=== PATIENT | female | born 1975 | race Two or more races ===

== ENCOUNTER 2016-10-08 20:12 | Emergency (ER) | payer OTHER ==
[~2016-10-08] VITALS: Ht 160 cm; Wt 72.6 kg
[~2016-10-08 20:12] MED LIST: OXYC-323 PO; PRED50TA PO
[2016-10-08 21:09] VITALS: BP 139/95
[2016-10-08] MEDS ORDERED: SULF1TAB24 PO (21:56)
--- NOTE | 2016-10-08 21:56 | PHYS DOC ---
Past Medical History Past Medical History: High Cholesterol, Hypertension Past Surgical History: No Surgical History Alcohol Use: None Drug Use: None Adult General Chief Complaint Chief Complaint: HEADACHE HPI HPI Patient is a 41 year old presents emergency department stating that she has been having sinus pressure and pain for the last 2 days. She states that she has had a headache starts at the maxillary sinus area and goes up into the back of her head. She denies any visual difficulty. She does have a cough with nonproductive. She does state she has a sore throat. She's been taking Mucinex DM [id number] which she states this makes her feel like her head is has increased pressure and pain. She also states she has a history of high blood pressure. She denies any nausea vomiting. Review of Systems Review of Systems Constitutional: Denies fever or chills [] Eyes: Denies change in visual acuity, redness, or eye pain [] HENT: nasal congestion and sore throat [] Respiratory: cough denies shortness of breath [] Cardiovascular: No additional information not addressed in HPI [] GI: Denies abdominal pain, nausea, vomiting, bloody stools or diarrhea [] : Denies dysuria or hematuria [] Musculoskeletal: Denies back pain or joint pain [] Integument: Denies rash or skin lesions [] Neurologic: Denies headache, focal weakness or sensory changes [] Allergies Allergies Allergies Coded Allergies Type Severity Reaction Last Updated Verified Penicillins Allergy Intermediate 07/02/15 Yes Physical Exam Physical Exam Constitutional: Well developed, well nourished, no acute distress, non-toxic appearance. [] HENT: Normocephalic, atraumatic, bilateral external ears normal, oropharynx moist, no oral exudates, nose normal. Bilateral tympanic membranes appear to be normal. Patient with frontal and maxillary sinus tenderness. Throat appears to have postnasal drip with erythematous no exudate noted. Eyes: PERRLA, EOMI, conjunctiva normal, no discharge. [] Neck: Normal range of motion, no tenderness, supple, no stridor. [] Cardiovascular:Heart rate regular rhythm, no murmur [] Lungs & Thorax: Bilateral breath sounds clear to auscultation [] Skin: Warm, dry, no erythema, no rash. [] Back: No tenderness Extremities: No tenderness, no cyanosis, no clubbing, ROM intact, no edema. [] Neurologic: Alert and oriented X 3, normal motor function, normal sensory function, no focal deficits noted. [] Psychologic: Affect normal, judgement normal, mood normal. [] Current Patient Data Vital Signs Vital Signs Date Time Temp Pulse Resp B/P Pulse Ox O2 Delivery O2 Flow Rate FiO2 10/08/16 21:09 98.6 99 20 99 Room Air 98.6 EKG EKG [] Radiology/Procedures Radiology/Procedures [] Course & Med Decision Making Course & Med Decision Making Pertinent Labs and Imaging studies reviewed. (See chart for details) Recommended patient to continue using Mucinex DM although she states that she does not feel right taking it. Recommended to patient that if she does not feel comfortable taking Mucinex DM them I would suggest nasal saline washes. Patient will be placed on Augmentin for sinusitis infection. Recommended patient to follow up with primary care physician within the next week. Signs and symptoms to return back to emergency department as been provided. [] Dragon Disclaimer Dragon Disclaimer This electronic medical record was generated, in whole or in part, using a voice recognition dictation system. Departure Departure Impression: Primary Impression: Sinusitis Disposition: HOME, SELF-CARE Condition: STABLE Referrals: NO PCP (PCP) Patient Instructions: Sinusitis, [id number] Additional Instructions: Activity as tolerated. Medication as prescribed. You may try Coricidin HBP You may also use nasal saline washes as instructed by brim rounder. Tylenol or ibuprofen for pain and discomfort. Follow-up to primary care physician as needed in the next 5-7 days. Return back to emergency department signs and symptoms of become worse. Scripts Sulfamethoxazole/Trimethoprim (Bactrim Ds Tablet)1 Each Tablet1 Tab PO BID #20 TAB Prov:ERMIAS TALBERT APRN 10/08/16 ERMIAS TALBERT APRN Oct 08, 2016 21:56
== END 2016-10-08 22:07 | disposition home or self-care (01) ==
LOC: ER 20:12
DX: J32.9 Chronic sinusitis, unspecified (principal); E78.00 Pure hypercholesterolemia, unspecified; I10 Essential (primary) hypertension; Z88.0 Allergy status to penicillin
CPT/HCPCS: 99283

== ENCOUNTER 2017-08-04 00:51 | Emergency (ER) | payer OTHER ==
[2017-08-04 01:36] LABS: ADD MAN DIFF? NO
[2017-08-04 01:38] LABS: BASO % 0 % (0-3); EOS # 0.1 x10^3/uL (0.0-0.7); EOS % 2 % (0-3); HEMATOCRIT 39.9 % (36.0-47.0); HEMOGLOBIN 13.5 g/dL (12.0-15.5); LYMPH # 3.3 x10^3/uL (1.0-4.8); LYMPH % 43 % (24-48); MEAN CORPUSCULAR HEMOGLOBIN 30 pg (25-35); MEAN CORPUSCULAR HGB CONC 34 g/dL (31-37); MEAN CORPUSCULAR VOLUME 89 fL (79-100); MONO # 0.5 x10^3/uL (0.0-1.1); MONO % 6 % (0-9); NEUT # 3.8 x10^3uL (1.8-7.7); NEUT % 49 % (31-73); PLATELET COUNT 436 x10^3/uL (140-400); RED CELL DISTRIBUTION WIDTH 12.7 % (11.5-14.5); WHITE BLOOD COUNT 7.8 x10^3/uL (4.0-11.0)
[2017-08-04] MEDS: ASPIRIN ENTERIC COATED 325 MG TABLET.DR. PO (01:44)
[2017-08-04] MEDS: NITROGLYCERIN SUBLINGUAL 0.4 MG BOTTLE OF 25. SL (01:45)
[2017-08-04] MEDS: IPRATRPIUM/ALBUTEROL 0.5/2.5MG 3 ML NEBU. NEB (01:50)
[2017-08-04 02:19] LABS: ANION GAP 14 (6-14); BLOOD UREA NITROGEN 12 mg/dL (7-20); BUN/CREATININE RATIO 15 (6-20); CALCIUM 8.5 mg/dL (8.5-10.1); CARBON DIOXIDE 25 mmol/L (21-32); CHLORIDE 98 mmol/L (98-107); CREATININE 0.8 mg/dL (0.6-1.0); GFR 78.3; GLUCOSE 98 mg/dL (70-99); POTASSIUM 3.3 mmol/L (3.5-5.1); SODIUM 137 mmol/L (136-145)
[2017-08-04 02:25] LABS: ALBUMIN 3.8 g/dL (3.4-5.0); ALBUMIN/GLOBULIN RATIO 0.9 (1.0-1.7); ALK PHOS 66 U/L (46-116); ALT (SGPT) 22 U/L (14-59); AST (SGOT) 16 U/L (15-37); MAGNESIUM 1.8 mg/dL (1.8-2.4); TOTAL BILIRUBIN 0.2 mg/dL (0.2-1.0); TOTAL PROTEIN 7.9 g/dL (6.4-8.2)
[2017-08-04 02:28] LABS: LACTIC ACID 2.5 mmol/L (0.4-2.0)
[2017-08-04 02:31] LABS: PARTIAL THROMBOPLASTIN TIME 31 SEC (24-38); PROTHROMBIN TIME PATIENT 12.4 SEC (11.7-14.0)
[2017-08-04 02:31] LABS: NT-PRO BNP 24 pg/mL (0-124)
[2017-08-04 02:36] LABS: D-DIMER < 0.27 ug/mlFEU (0.00-0.50)
[2017-08-04 02:38] LABS: TROPONINI < 0.017 ng/mL (0.000-0.055)
== END 2017-08-04 03:47 | disposition home or self-care (01) ==
LOC: ER 00:51
DX: R07.89 Other chest pain (principal); R06.00 Dyspnea, unspecified; E78.00 Pure hypercholesterolemia, unspecified; I10 Essential (primary) hypertension; Z88.0 Allergy status to penicillin; Z79.899 Other long term (current) drug therapy
CPT/HCPCS: 36415; 71045; 80053; 83605; 83735; 83880; 84484; 85025; 85379; 85610; 85730; 93005; 94640; 99285-25; J7620

== ENCOUNTER 2018-08-25 23:19 | Emergency (ER) | payer OTHER ==
[~2018-08-25] VITALS: Ht 149.9 cm; Wt 80.7 kg
[~2018-08-25 23:19] MED LIST changes: +ATOR20TA58 PO; +LOSA1TAB22 PO; -OXYC-323 PO; +OXYC1TAB15 PO; +SULF1TAB24 PO
[2018-08-25 23:28] VITALS: BP 129/70
--- NOTE | 2018-08-25 23:47 | PHYS DOC ---
Past Medical History Past Medical History: High Cholesterol, Hypertension (LUCIA VELASQUEZ APRN) Past Surgical History: No Surgical History (LUCIA VELASQUEZ APRN) Alcohol Use: None Drug Use: None (LUCIA VELASQUEZ APRN) Adult General Chief Complaint Chief Complaint: FLU SYMPTOM HPI HPI Patient is a 43 year old female with a history of high cholesterol, hypertension, who presents today complaining of body aches, mild headache, sore throat, cough and fever since yesterday. Patient denies any neck pain. Denies any nausea, vomiting, denies any diarrhea, denies any abdominal pain. Daughter was interpreting for [place] (LUCIA VELASQUEZ APRN) Review of Systems Review of Systems Constitutional: Reports fevers and body aches Eyes: Denies change in visual acuity, redness, or eye pain [] HENT: Reports sore throat. Denies nasal congestion Respiratory: Reports cough, denies shortness of breath [] Cardiovascular: No additional information not addressed in HPI [] GI: Denies abdominal pain, nausea, vomiting, bloody stools or diarrhea [] : Denies dysuria or hematuria [] Musculoskeletal: Denies back pain or joint pain [] Integument: Denies rash or skin lesions [] Neurologic: Denies headache, focal weakness or sensory changes [] All other systems were reviewed and found to be within normal limits, except as documented in this note. (LUCIA VELASQUEZ APRN) Current Medications Current Medications Current Medications Medications (Trade) Dose Ordered Sig/Lucretia Start Time Stop Time Status Last Admin Dose Admin Acetaminophen (Tylenol) 1,000 mg 1X ONCE 08/26/18 00:00 08/26/18 00:01 DC 08/26/18 00:11 1,000 MG Lidocaine HCl (Viscous Lidocaine) 15 ml 1X ONCE 08/26/18 00:00 08/26/18 00:01 DC 08/26/18 00:11 15 ML (CLAIRE SOLIMAN DO) Allergies Allergies Allergies Coded Allergies Type Severity Reaction Last Updated Verified Penicillins Allergy Intermediate 07/02/15 Yes (CLAIRE SOLIMAN DO) Physical Exam Physical Exam Constitutional: Well developed, well nourished, no acute distress, non-toxic appearance. [] HENT: Normocephalic, atraumatic, bilateral external ears normal, oropharynx moist, no oral exudates, nose normal. [] Eyes: PERRLA, EOMI, conjunctiva normal, no discharge. [] Neck: Normal range of motion, no tenderness, supple, no stridor. [] Cardiovascular:Heart rate regular rhythm, no murmur [] Lungs & Thorax: Bilateral breath sounds clear to auscultation [] Abdomen: Bowel sounds normal, soft, no tenderness, no masses, no pulsatile masses. [] Skin: Warm, dry, no erythema, no rash. [] Back: No tenderness, no CVA tenderness. [] Extremities: No tenderness, no cyanosis, no clubbing, ROM intact, no edema. [] Neurologic: Alert and oriented X 3, normal motor function, normal sensory function, no focal deficits noted. [] Psychologic: Affect normal, judgement normal, mood normal. [] (LUCIA VELASQUEZ APRN) Current Patient Data Vital Signs Vital Signs Date Time Temp Pulse Resp B/P (MAP) Pulse Ox O2 Delivery O2 Flow Rate FiO2 08/25/18 23:28 99.2 104 22 129/70 (89) 95 Room Air 99.2 (CLAIRE SOLIMAN DO) Lab Values Laboratory Tests Test 08/25/18 23:22 Influenza Type A Antigen Negative (NEGATIVE) Influenza Type B Antigen Negative (NEGATIVE) (CLAIRE SOLIMAN DO) Lab Values Laboratory Tests Test 08/25/18 23:22 Influenza Type A Antigen Negative (NEGATIVE) Influenza Type B Antigen Negative (NEGATIVE) (LUCIA VELASQUEZ APRN) EKG EKG [] (LUCIA VELASQUEZ APRN) Radiology/Procedures Radiology/Procedures [] (LUCIA VELASQUEZ APRN) Course & Med Decision Making Course & Med Decision Making Pertinent Labs and Imaging studies reviewed. (See chart for details) This is a 43-year-old female patient presenting to the ED today with multiple viral complaint symptoms including headache, sore throat, body aches, cough. Symptoms since yesterday. Temperature on arrival to the ED 99.2 Negative rapid strep, negative influenza A or B, chest x-ray interpreted by Dr. Soliman is negative for any acute findings. Patient was discharged with Tessalon Perles and prednisone short course. Saltwater gargles recommended. Tylenol/ Motrin for pain or fever. (LUCIA VELASQUEZ APRN) Dragon Disclaimer Dragon Disclaimer This electronic medical record was generated, in whole or in part, using a voice recognition dictation system. (LUCIA VELASQUEZ APRN) Departure Departure Impression: Primary Impression: Cough Additional Impressions: Viral upper respiratory illness Acute viral pharyngitis Fever Disposition: HOME, SELF-CARE Condition: STABLE Referrals: JUNO OCREA MD (PCP) Follow up in 1-2 weeks Patient Instructions: Cough, Adult, [id number], Fever, Adult, Viral Pharyngitis Additional Instructions: You were evaluated in the emergency room, we highly suspect you have a viral illness. Take the prescribed medications as ordered. Rest, push fluids. Follow- up with your doctor in 1-2 weeks. Scripts Benzonatate (TESSALON PERLE) 100 Mg Capsule 1 CAP PO TID, #30 CAP Prov: LUCIA VELASQUEZ APRN 08/26/18 Prednisone (PREDNISONE) 50 Mg Tablet 1 TAB PO DAILY, #5 TAB Prov: LUCIA VELASQUEZ APRN 08/26/18 Attending Signature Attending Signature I have reviewed the PA/BUSINESS APPLICATIONS DEVELOPER's note and plan of care. I was available for consultation as needed during the patient's visit in the emergency department. I agree with the clinical impression, plan, and disposition. (CLAIRE SOLIMAN DO) Problem Qualifiers Additional Impressions: Fever Fever type: unspecified Qualified Codes: R50.9 - Fever, unspecified LUCIA VELASQUEZ APRN Aug 25, 2018 23:47 CLAIRE SOLIMAN DO Aug 26, 2018 05:22
[2018-08-25 23:48] LABS: INFLUENZA A PATIENT NEGATIVE (NEGATIVE); INFLUENZA B PATIENT NEGATIVE (NEGATIVE)
[2018-08-26] MEDS ORDERED: ACETAMINOPHEN 500 MG TABLET PO ONE
[2018-08-26] MEDS ORDERED: LIDOCAINE 2% VISCOUS 15 ML SOLUTION. SWSW ONE
[2018-08-26] MEDS ORDERED: BENZ100C PO (00:40)
[2018-08-26] MEDS ORDERED: PRED50TA PO (00:40)
--- NOTE | 2018-08-26 08:03 | RAD ---
PROCEDURE: CHEST PA LATERAL CLINICAL INDICATION: cough; flu symptoms COMPARISON: None FINDINGS: No pneumothorax identified. Cardiac and mediastinal contours unremarkable. No pulmonary consolidation or acute airspace disease. No acute osseous abnormalities identified. IMPRESSION: No pulmonary consolidation or acute airspace disease. Electronically signed by: Saravanan Martínez DO (08/26/2018 7:58 AM) [id number]
== END 2018-08-26 00:47 | disposition home or self-care (01) ==
LOC: ER 23:19
DX: J02.8 Acute pharyngitis due to other specified organisms (principal); R50.9 Fever, unspecified; E78.00 Pure hypercholesterolemia, unspecified; I10 Essential (primary) hypertension
CPT/HCPCS: 71046; 87070; 87804; 87880; 99284-25

== ENCOUNTER 2019-09-05 01:23 | Emergency (ER) | payer SELFPAY ==
[~2019-09-05] VITALS: Ht 154.9 cm; Wt 81.8 kg
[~2019-09-05 01:23] MED LIST changes: +BENZ100C PO
--- NOTE | 2019-09-05 02:04 | PHYS DOC ---
Past Medical History Past Medical History: High Cholesterol, Hypertension Past Surgical History: No Surgical History Smoking Status: Never Smoker Alcohol Use: None Drug Use: None The HEART Score for CP Pts HEART Score for Chest Pain: HEART Score for Chest Pain Response (Comments) Value History Slighlty/Non-Suspicious 0 ECG Nonspecific Repolarizatio 1 Age >45 - < 65 1 Risk Factors >3 Risk Factors or Hx CAD 2 Troponin < Normal Limit 0 Total 4 Risk Factors: Risk Factors: DM, Current or recent (<one month) smoker, HTN, HLP, family history of CAD, obesity. Risk Scores: Score 0 - 3: 2.5% MACE over next 6 weeks - Discharge Home Score 4 - 6: 20.3% MACE over next 6 weeks - Admit for Clinical Observation Score 7 - 10: 72.7% MACE over next 6 weeks - Early Invasive Strategies Adult General Chief Complaint Chief Complaint: HEADACHE HPI HPI 44-year-old female with underlying history of hypertension, hyperlipidemia, family history of coronary artery disease presents to the emergency department with elevated blood pressure, shortness of breath, chest pain. Patient takes hydrochlorothiazide 25 mg, she has taken 4 of these medications given her continued elevation of blood pressure at home. Onset was around 5 PM. Patient denies any nausea, vomiting, diarrhea, abdominal pain. Patient denies any visual changes. Nothing makes her symptoms worse, nothing makes her symptoms better. Review of Systems Review of Systems Constitutional: Denies fever or chills [] Respiratory: SOB Cardiovascular: No additional information not addressed in HPI [] GI: Denies abdominal pain, nausea, vomiting, bloody stools or diarrhea [] Musculoskeletal: Denies back pain or joint pain [] Integument: Denies rash or skin lesions [] Neurologic: + headache, no focal weakness or sensory changes [] All other systems were reviewed and found to be within normal limits, except as documented in this note. Current Medications Current Medications Current Medications Medications (Trade) Dose Ordered Sig/Lucretia Start Time Stop Time Status Last Admin Dose Admin Aspirin (Children'S Aspirin) 324 mg 1X ONCE 09/05/19 02:30 09/05/19 02:31 DC 09/05/19 03:08 324 MG Diphenhydramine HCl (Benadryl) 25 mg 1X ONCE 09/05/19 03:00 09/05/19 03:01 DC 09/05/19 03:11 25 MG Ketorolac Tromethamine (Toradol 30mg Vial) 30 mg 1X ONCE 09/05/19 03:00 09/05/19 03:01 DC 09/05/19 03:10 30 MG Magnesium Chloride (Mag Delay) 64 mg 1X ONCE 09/05/19 03:30 09/05/19 03:31 DC 09/05/19 03:22 64 MG Metoclopramide HCl (Reglan Vial) 10 mg 1X ONCE 09/05/19 03:00 09/05/19 03:01 DC 09/05/19 03:13 10 MG Potassium Chloride (Klor-Con) 40 meq 1X ONCE 09/05/19 03:30 09/05/19 03:31 DC 09/05/19 03:09 40 MEQ Allergies Allergies Allergies Coded Allergies Type Severity Reaction Last Updated Verified Penicillins Allergy Intermediate 07/02/15 Yes Physical Exam Physical Exam Constitutional: Well developed, well nourished, no acute distress, non-toxic appearance. [] HENT: Normocephalic, atraumatic, bilateral external ears normal, oropharynx moist, no oral exudates, nose normal. [] Eyes: PERRLA, EOMI, conjunctiva normal, no discharge. [] Cardiovascular:Heart rate regular rhythm, no murmur [] Lungs & Thorax: Bilateral breath sounds clear to auscultation [] Abdomen: Bowel sounds normal, soft, no tenderness, no masses, no pulsatile masses. [] Skin: Warm, dry, no erythema, no rash. [] Back: No tenderness, no CVA tenderness. [] Extremities: No tenderness, no edema. [] Neurologic: Alert and oriented X 3, no focal deficits noted. [] Psychologic: Affect normal, judgement normal, mood normal. [] Current Patient Data Vital Signs Vital Signs Date Time Temp Pulse Resp B/P (MAP) Pulse Ox O2 Delivery O2 Flow Rate FiO2 09/05/19 01:40 96.1 85 16 168/102 (124) 97 Room Air 96.1 Lab Values Laboratory Tests Test 09/05/19 02:14 09/05/19 02:20 09/05/19 03:49 POC Urine HCG, Qualitative Hcg negative (Negative) White Blood Count 7.7 x10^3/uL (4.0-11.0) Red Blood Count 4.53 x10^6/uL (3.50-5.40) Hemoglobin 13.4 g/dL (12.0-15.5) Hematocrit 38.9 % (36.0-47.0) Mean Corpuscular Volume 86 fL (79-100) Mean Corpuscular Hemoglobin 30 pg (25-35) Mean Corpuscular Hemoglobin Concent 34 g/dL (31-37) Red Cell Distribution Width 13.0 % (11.5-14.5) Platelet Count 396 x10^3/uL (140-400) Neutrophils (%) (Auto) 49 % (31-73) Lymphocytes (%) (Auto) 43 % (24-48) Monocytes (%) (Auto) 7 % (0-9) Eosinophils (%) (Auto) 1 % (0-3) Basophils (%) (Auto) 1 % (0-3) Neutrophils # (Auto) 3.7 x10^3/uL (1.8-7.7) Lymphocytes # (Auto) 3.3 x10^3/uL (1.0-4.8) Monocytes # (Auto) 0.5 x10^3/uL (0.0-1.1) Eosinophils # (Auto) 0.1 x10^3/uL (0.0-0.7) Basophils # (Auto) 0.1 x10^3/uL (0.0-0.2) Sodium Level 136 mmol/L (136-145) Potassium Level 2.4 mmol/L (3.5-5.1) *L Chloride Level 96 mmol/L (98-107) L Carbon Dioxide Level 30 mmol/L (21-32) Anion Gap 10 (6-14) Blood Urea Nitrogen 11 mg/dL (7-20) Creatinine 0.8 mg/dL (0.6-1.0) Estimated GFR (Cockcroft-Gault) 77.6 BUN/Creatinine Ratio 14 (6-20) Glucose Level 99 mg/dL (70-99) Calcium Level 8.9 mg/dL (8.5-10.1) Magnesium Level 1.6 mg/dL (1.8-2.4) L Total Bilirubin 0.4 mg/dL (0.2-1.0) Aspartate Amino Transferase (AST) 26 U/L (15-37) Alanine Aminotransferase (ALT) 33 U/L (14-59) Alkaline Phosphatase 76 U/L (46-116) Troponin I Quantitative < 0.017 ng/mL (0.000-0.055) < 0.017 ng/mL (0.000-0.055) Total Protein 7.7 g/dL (6.4-8.2) Albumin 3.7 g/dL (3.4-5.0) Albumin/Globulin Ratio 0.9 (1.0-1.7) L Laboratory Tests 09/05/19 02:20 Laboratory Tests 09/05/19 02:20 EKG EKG [] Radiology/Procedures Radiology/Procedures [facility] [address] [place] [address] IMAGING REPORT Signed PATIENT: YAMILETH WELCH AACCOUNT: [id number] : 1975 LOCATION: ER AGE: 44 SEX: F EXAM STATUS: REG ER ORD. PHYSICIAN: VIOLET ROBERTSON MD REASON: headache, elevated BP PROCEDURE: CT HEAD WO CONTRAST PQRS Compliance Statement: One or more of the following individualized dose reduction techniques were utilized for this examination: 1. Automated exposure control 2. Adjustment of the mA and/or kV according to patient size 3. Use of iterative reconstruction technique CT HEAD WITHOUT CONTRAST History: Headache, elevated blood pressure. Comparison: None. Procedure: Axial images are obtained of the head from the skull base through the vertex without IV contrast. Findings: The ventricles and sulci are normal for the patient's age. No mass-effect, midline shift, hemorrhage, extra-axial fluid collection, or obvious acute infarction is identified. Basilar cisterns are patent. Bone windows demonstrate no acute calvarial abnormality. The visualized paranasal sinuses are clear. Mastoid air cells are well aerated. IMPRESSION: No acute intracranial abnormality. Electronically signed by: Neo Denise MD (09/05/2019 2:52 AM) [id number] DICTATED and SIGNED BY: NEO DENISE MD DATE: 09/05/19 0252 [] CXR without acute findings - wet read 314 Course & Med Decision Making Course & Med Decision Making Pertinent Labs and Imaging studies reviewed. (See chart for details) []44-year-old female with underlying history of hypertension, hyperlipidemia, family history of coronary artery disease presents to the emergency department with elevated blood pressure, shortness of breath, chest pain. Patient takes hydrochlorothiazide 25 mg, she has taken 4 of these medications given her continued elevation of blood pressure at home. Onset was around 5 PM. Patient denies any nausea, vomiting, diarrhea, abdominal pain. Patient denies any visual changes. Nothing makes her symptoms worse, nothing makes her symptoms better. Labs/Imaging reviewed CT head negative for acute process BP < 170 systolically during ER visit Patient without chest pain during ER visit Headache improved after Toradol/Benadryl/Reglan Recommend dc home and follow with PCP as outpatient Simon Disclaimer Simon Disclaimer This electronic medical record was generated, in whole or in part, using a voice recognition dictation system. Departure Departure Impression: Primary Impression: Chest pain Additional Impressions: Headache Hypertension Hypokalemia Hypomagnesemia Disposition: HOME, SELF-CARE Condition: IMPROVED Referrals: NO PCP (PCP) Patient Instructions: Chest Pain Observation, Hypertension, Hypokalemia-Brief, Hypomagnesemia Additional Instructions: CT of head negative for acute process EKG without acute rhythm changes Hypokalemia and hypomagnesemia replaced in ER Cardiac enzymes x 2 sets negative in the ER Recommend follow up with PCP as outpatient regarding BP follow up Problem Qualifiers Primary Impression: Chest pain Chest pain type: unspecified Qualified Codes: R07.9 - Chest pain, unspecified Additional Impressions: Headache Headache type: unspecified Headache chronicity pattern: episodic headache Intractability: intractable Qualified Codes: R51 - Headache Hypertension Hypertension type: essential hypertension Qualified Codes: I10 - Essential (primary) hypertension VIOLET ROBERTSON MD Sep 05, 2019 02:04
[2019-09-05 02:29] LABS: BASO # 0.1 x10^3/uL (0.0-0.2); BASO % 1 % (0-3); EOS # 0.1 x10^3/uL (0.0-0.7); EOS % 1 % (0-3); HEMATOCRIT 38.9 % (36.0-47.0); HEMOGLOBIN 13.4 g/dL (12.0-15.5); LYMPH # 3.3 x10^3/uL (1.0-4.8); LYMPH % 43 % (24-48); MEAN CORPUSCULAR HEMOGLOBIN 30 pg (25-35); MEAN CORPUSCULAR HGB CONC 34 g/dL (31-37); MEAN CORPUSCULAR VOLUME 86 fL (79-100); MONO # 0.5 x10^3/uL (0.0-1.1); MONO % 7 % (0-9); NEUT # 3.7 x10^3/uL (1.8-7.7); NEUT % 49 % (31-73); PLATELET COUNT 396 x10^3/uL (140-400); RED BLOOD COUNT 4.53 x10^6/uL (3.50-5.40); WHITE BLOOD COUNT 7.7 x10^3/uL (4.0-11.0)
[2019-09-05] MEDS ORDERED: ASPIRIN CHEWABLE 81 MG TABLET. PO ONE (02:30)
[2019-09-05 02:47] LABS: ALBUMIN 3.7 g/dL (3.4-5.0); ALBUMIN/GLOBULIN RATIO 0.9 (1.0-1.7); CALCIUM 8.9 mg/dL (8.5-10.1); CREATININE 0.8 mg/dL (0.6-1.0); GFR 77.6; TOTAL BILIRUBIN 0.4 mg/dL (0.2-1.0); TOTAL PROTEIN 7.7 g/dL (6.4-8.2)
[2019-09-05 02:50] LABS: POTASSIUM 2.4 mmol/L (3.5-5.1)
--- NOTE | 2019-09-05 02:55 | RAD ---
RS Compliance Statement: One or more of the following individualized dose reduction techniques were utilized for this examination: 1. Automated exposure control 2. Adjustment of the mA and/or kV according to patient size 3. Use of iterative reconstruction technique CT HEAD WITHOUT CONTRAST History: Headache, elevated blood pressure. Comparison: None. Procedure: Axial images are obtained of the head from the skull base through the vertex without IV contrast. Findings: The ventricles and sulci are normal for the patient's age. No mass-effect, midline shift, hemorrhage, extra-axial fluid collection, or obvious acute infarction is identified. Basilar cisterns are patent. Bone windows demonstrate no acute calvarial abnormality. The visualized paranasal sinuses are clear. Mastoid air cells are well aerated. IMPRESSION: No acute intracranial abnormality. Electronically signed by: Neo Denise MD (09/05/2019 2:52 AM) [id number]
[2019-09-05] MEDS ORDERED: KETOROLAC 30 MG/ML VIAL. IVP ONE (03:00)
[2019-09-05] MEDS ORDERED: diphenhydrAMINE 50 MG/ML VIAL IVP ONE (03:00)
[2019-09-05] MEDS ORDERED: METOCLOPRAMIDE HCL 10 MG/2 ML VIAL. IVP ONE (03:00)
--- NOTE | 2019-09-05 03:18 | RAD ---
CHEST AP ONLY Clinical Indication: Chest pain. Comparison: Two-view chest 08/25/2018. Findings: The cardiomediastinal silhouette is normal. Lungs are clear. There is no pneumothorax. No pleural effusion is appreciated. No acute bone abnormality. IMPRESSION: No acute cardiopulmonary process. Electronically signed by: Neo Denise MD (09/05/2019 3:15 AM) [id number]
[2019-09-05] MEDS ORDERED: MAGNESIUM CHLORIDE ER 64 MG TABLET.ER PO ONE (03:30)
[2019-09-05] MEDS ORDERED: POTASSIUM CHLORIDE 20 MEQ TABLET.ER. PO ONE (03:30)
[2019-09-05 04:13] VITALS: BP 134/81
--- NOTE | 2019-09-05 10:20 | EKG ---
[facility] [address] [place] [address] Test Date: 2019-09-05 Test Time: 02:35:20 Pat Name: YAMILETH WELCH Department: Patient ID: [id number] Room: Gender: F Bolt Man: [facility] ER : 1975 Requested By: VIOLET ROBERTSON Order Number: [id number] Reading MD: Measurements Intervals [place] Rate: 81 P: 28 TN: 158 QRS: 22 QRSD: 90 T: -18 QT: 394 QTc: 458 Interpretive Statements SINUS RHYTHM QRS(T) CONTOUR ABNORMALITY CONSIDER ANTEROSEPTAL MYOCARDIAL DAMAGE T ABNORMALITY IN ANTERIOR LEADS INFERIOR LEADS ABNORMAL ECG RI6.01 No previous ECG available for comparison
== END 2019-09-05 04:24 | disposition home or self-care (01) ==
LOC: ER 01:23
DX: I10 Essential (primary) hypertension (principal); E83.42 Hypomagnesemia; E87.6 Hypokalemia; R51 Headache; R07.89 Other chest pain; R06.02 Shortness of breath; E78.00 Pure hypercholesterolemia, unspecified; Z79.82 Long term (current) use of aspirin; Z88.0 Allergy status to penicillin; Z79.899 Other long term (current) drug therapy
CPT/HCPCS: 36415; 70450; 71045; 80053; 81025; 83735; 84484; 85025; 93005; 96374; 96375; 99285; J1200; J1885; J2765